=== PATIENT | female | born 1975 ===

== ENCOUNTER 2017-01-19 08:57 | Emergency (ER) | payer OTHER ==
[~2017-01-19] VITALS: Ht 154.9 cm; Wt 68.5 kg
[2017-01-19] MEDS ORDERED: PREVACID30 MG PO (09:10)
[2017-01-19] MEDS ORDERED: MULTI-DAY VITA1 EACH PO (09:10)
[2017-01-19] MEDS ORDERED: BIRTH CONTROL PILL (09:10)
[2017-01-19] MEDS ORDERED: FLUOXETINE HCL20 MG PO (09:10)
== END 2017-01-19 09:19 | disposition home or self-care (01) ==
LOC: ED 08:57
DX: Z00.8 Encounter for other general examination (principal)